=== PATIENT | female | born 1980 | race Caucasian/White ===

== ENCOUNTER → 2019-12-21 10:34 | Outpatient (BNVA) | payer SELFPAY | PROVIDERS: Visit Provider Nurse Practitioner Family | DX: R59.1 Generalized enlarged lymph nodes (principal); Z00.00 Encounter for general adult medical examination without abnormal findings | CPT/HCPCS: 85025 ==

== ENCOUNTER → 2020-11-11 09:38 | Outpatient (BNVA) | payer SELFPAY | PROVIDERS: PCP Registered Nurse; Visit Provider Registered Nurse | DX: L65.9 Nonscarring hair loss, unspecified (principal); E03.9 Hypothyroidism, unspecified; Z13.6 Encounter for screening for cardiovascular disorders; Z02.1 Encounter for pre-employment examination | CPT/HCPCS: 80053; 80061; 84443; 85025 ==

== ENCOUNTER → 2021-05-13 09:36 | Outpatient (BNVA) | payer SELFPAY | PROVIDERS: PCP Registered Nurse; Visit Provider Registered Nurse | DX: E03.9 Hypothyroidism, unspecified (principal) | CPT/HCPCS: 84439; 84443; 84481 ==